=== PATIENT | female | born 1975 | race Caucasian/White ===

== ENCOUNTER 2025-08-23 10:00 | Emergency (ER) | payer BC, SELFPAY ==
[2025-08-23 10:13] VITALS: BP 153/87
[2025-08-23 10:40] LABS: Hematocrit 39.5 % (37.0-47.0); Hemoglobin 12.2 g/dL (12.0-16.0); Mean Corp Hgb Conc. 30.9 g/dL (33.0-37.0); Mean Corpuscular Volume 75.4 fL (81.0-99.0); Nucleated Red Blood Cells % 0 %; Platelet Count 436 10^3/uL (130-400); Red Cell Dist. Width 15.5 % (11.5-14.5)
[2025-08-23 10:50] LABS: INR 0.90; PT 12.5 Sec (11.4-14.6)
[2025-08-23 10:53] LABS: ALT (SGPT) 15 U/L (0-35); AST (SGOT) 14 U/L (14-36); Albumin 4.1 g/dl (3.5-5.0); Alkaline Phosphatase 103 U/L (38-126); Blood Urea Nitrogen 8 mg/dl (7-17); Calcium 8.9 mg/dl (8.4-10.2); Carbon Dioxide 22 mmol/L (22-30); Chloride 104 mmol/L (98-107); Glucose 387 mg/dl (70-99); Potassium 4.3 mmol/L (3.5-5.1); Sodium 131 mmol/L (135-145); Total Protein 6.8 g/dl (6.3-8.2); eGFR > 60.00
[2025-08-23 11:22] LABS: Troponin I < 0.012 ng/ml
[2025-08-23 11:33] VITALS: BMI 36.3
--- NOTE | 2025-08-23 13:06 | ED.GENMED ---
History of Present Illness
General
Chief Complaint: Cardiac Symptoms
Source: patient
Exam Limitations: none
Time Seen by Provider: 08/23/25 12:50
History of Present Illness
History of Present Illness:
50-year-old female presents with worsening pain to the right chest wall starting a week ago. The pain is made worse with motion and coughing. No recent travel or surgery. No leg swelling or calf pain. She is not on any hormones. She does note
that her had to give her the Heimlich maneuver 3 days prior to the onset of the symptoms. She has a prior history of and cholecystectomy. No urinary symptoms. No hemoptysis. No other complaints at this time
Past History
Past History
ED Past Medical History: Other (Dysfunctional uterine bleeding); Negative Asthma, HTN, Hypercholesterolemia or NIDDM
ED Past Surgical History: Cholecystectomy, and Gynecological (LEEP)
Social History
Tobacco: Smoker
Alcohol: Occasional
Personal:
Living: with family
Employment: Employed
Family History
Family History: Negative Early CAD or CAD
Phy Exam
Physical Exam
Physical Exam:
General: Well-appearing female no respiratory distress
HEENT: Normal cephalic atraumatic
Heart: Regular rate and rhythm no murmurs
Lungs: Clear no wheeze
Abdomen is soft nontender nondistended no guarding or rebound
Musculoskeletal exam: The patient has reproducible tenderness to the right lateral chest wall without step-off or deformity. No overlying rashes
Extremities: No cyanosis or edema
Course
Orders/Labs/Results
Orders:
Orders
08/23/25 10:12
EKG [Electrocardiogram (*1)] Urgent
Reason for Study: Chest Pain
08/23/25 10:13
EKG- Treatment ONCE
08/23/25 10:15
CR Chest - 2 Views Urgent
Comment:
Reason For Exam: right chest pain
08/23/25 10:29
Complete Blood Count/With Diff Urgent
Comprehensive Metabolic Panel Urgent
Prothrombin Time Urgent
Troponin I Urgent
Abnormal Lab Results
08/23/25
10:29
MCV 75.4 L fL
(81.0-99.0)
MCH 23.3 L pg
(27.0-31.0)
MCHC 30.9 L g/dL
(33.0-37.0)
RDW 15.5 H %
(11.5-14.5)
Plt Count 436 H 10^3/uL
(130-400)
Immature Gran % 0.6 H %
(0-0.5)
Sodium 131 L mmol/L
(135-145)
Creatinine 0.4 L mg/dL
(0.6-1.0)
Glucose 387 H mg/dl
(70-99)
08/23/25 10:29
08/23/25 10:29
Vital Signs
Initial and Last Documented VS:
Initial Vital Signs
Temp Pulse Resp BP Pulse Ox
98.6 F 101 17 153/87 99
08/23/25 10:13 08/23/25 10:13 08/23/25 10:13 08/23/25 10:13 08/23/25 10:13
Last Documented Vital Signs
Temp Pulse Resp BP Pulse Ox
98.6 F 101 17 153/87 99
08/23/25 10:13 08/23/25 10:13 08/23/25 10:13 08/23/25 10:13 08/23/25 10:13
MDM/Problems Addressed
Differential Diagnosis Includes:
Right lateral chest wall pain. No risk factors for PE pain is very reproducible to the touch with stable vital signs. EKG and troponin both were normal. She is not hypoxic nor she tachycardic. Prior history of cholecystectomy. X-ray was
performed of the chest which is negative for acute finding. Suspect occult rib fracture versus muscular strain. No indication for any further intervention. Offered her Toradol through the IV however the patient requested just to go home at this
point.
*Pulse Oximetry
SaO2: 99
Oxygen Mode of Delivery: Room air
Patient hypoxic: no
*Critical Care Note
Total Time (30-74mins, 75-104mins- exclusive of procedures): Not Applicable
ED Attending Note
-
Portions of this chart may have been created with voice recognition software.� Occasional wrong word or��sound alike� substitutions may have occurred due to the inherent limitations of voice recognition software.
Discharge Plan
Departure
Patient Disposition: Home (Routine Discharge)
Date of Disposition: 08/23/25
Time of Disposition: 13:13
Patient with high blood pressure during this ER visit?: No
Discharge Problem:
Chest wall pain
Prescriptions:
No Action
levofloxacin 500 MG tablet
500 mg PO DAILY Qty: 9 0RF
metronidazole 500 MG tablet
500 mg PO TID Qty: 29 0RF
Referrals:
Tenthoff,Ambreen Pereira MD [Family Provider, Family Practice]
Activity Restrictions/Additional Instructions:
Continue with ibuprofen or Tylenol for pain. Return here if worse otherwise follow-up with your doctor
Interventions
Interventions:
*Risk Screen - Suicide Last Done: 08/23/25 10:15
*General Assessment Last Done: 08/23/25 10:15
*Neglect/Abuse Screening Last Done: 08/23/25 10:15
*ED- Fall Risk Assessment Last Done: 08/23/25 11:33
*ED COVID-19 Vaccine History Last Done: 08/23/25 10:15
*ED Influenza Vaccine History Last Done: 08/23/25 10:15
ED- Pulmonary Assessment Last Done: 08/23/25 11:33
ED- Cardiac Assessment Last Done: 08/23/25 11:33
Discharge Date and Time
Print Language: [place]
[2025-08-23 13:21] VITALS: BP 132/79
== END 2025-08-23 13:16 | disposition home or self-care (01) ==
LOC: EMR 10:00
PROVIDERS: EMERGENCY PHYSICIAN Emergency Medicine; FAMILY PHYSICIAN Family Medicine
DX: R07.89 Other chest pain (principal); F17.200 Nicotine dependence, unspecified, uncomplicated; Z90.49 Acquired absence of other specified parts of digestive tract; Z88.5 Allergy status to narcotic agent
CPT/HCPCS: 99283; 71046; 80053; 84484; 85025; 85610; 93005